=== PATIENT | female | born 1940 | race Two or more races ===

== ENCOUNTER 2023-02-09 09:24 | Outpatient (CLI) | payer OTHER ==
[~2023-02-09 09:24] MED LIST: PLAVIX75 MG PO; SYNTHROID88 MCG PO; TENORMIN25 MG PO; TOPROL XL25 M1 PO; ZOCOR20 MG PO
[2023-02-10] MEDS ORDERED: MACROBID 100 M100 MG PO (10:53)
== END 2023-02-09 09:26 | disposition home or self-care (01) ==
LOC: LAB 09:24
PROVIDERS: ATTEND Obstetrics & Gynecology Gynecology
DX: Z20.828 Contact with and (suspected) exposure to other viral communicable diseases (principal)

== ENCOUNTER 2023-02-10 06:30 | Day surgery (SDC) | payer OTHER ==
[2023-02-10] MEDS ORDERED: MACROBID 100 M100 MG PO (10:53)
== END 2023-02-10 11:25 | disposition home or self-care (01) ==
LOC: CIR.AMB 06:30
PROVIDERS: ATTEND Obstetrics & Gynecology Gynecology
DX: N81.11 Cystocele, midline (principal); N81.6 Rectocele; N81.82 Incompetence or weakening of pubocervical tissue; N81.83 Incompetence or weakening of rectovaginal tissue; Z20.822 Contact with and (suspected) exposure to COVID-19; Z88.0 Allergy status to penicillin

== ENCOUNTER 2025-03-14 05:30 | Day surgery (SDC) | payer OTHER ==
[2025-03-07 12:52] VITALS: BP 134/79
[~2025-03-14] VITALS: Ht 137.2 cm; Wt 54.4 kg
[~2025-03-14 05:30] MED LIST changes: +MACROBID 100 M100 MG PO
[2025-03-14] MEDS ORDERED: GENTAMICIN SULFATE 40 MG/ML VIAL ONE (07:04)
[2025-03-14] MEDS ORDERED: CEFAZOLIN SODIUM 1,000 MG VIAL ONE (07:05)
[2025-03-14] MEDS ORDERED: LIDOCAINE HCL 1%/EPINEPHRINE 20ML VIAL IJ ONE (07:05)
[2025-03-14] MEDS ORDERED: CHLORHEXIDINE GLUCONATE 120 ML BOTTLE TOP ONE (07:05)
[2025-03-14] MEDS ORDERED: CIPROFLOXACIN IN 5 % DEXTROSE 400 MG/200 ML PIGGYBAG IV ONE (07:09)
[2025-03-14] MEDS ORDERED: VANCOMYCIN HCL 1,000 MG VIAL ONE (07:37)
[2025-03-14] MEDS ORDERED: MORPHINE SULFATE 4 MG/ML VIAL IV ONE (13:50)
== END 2025-03-14 17:10 | disposition home or self-care (01) ==
LOC: CIR.AMB 05:30
PROVIDERS: ATTEND Obstetrics & Gynecology Gynecology
DX: N81.11 Cystocele, midline (principal); L92.9 Granulomatous disorder of the skin and subcutaneous tissue, unspecified